=== PATIENT | female | born 1970 | race Caucasian/White ===

== ENCOUNTER 2020-03-02 11:25 | Emergency (ER) | payer OTHER, BC ==
[~2020-03-02] VITALS: Ht 154.9 cm; Wt 117.9 kg
--- OUTSIDE RECORDS SUMMARY | ~2020-03-02 | XMS | Clinical Summary ---
Demographics + + + | Address | [address] | | | [place] [address] | + + + | Home Phone | | + + + | Preferred Language | Unknown | + + + | Marital Status | | + + + | Mandaen Affiliation | Unknown | + + + | Race | Unknown | + + + | Ethnic Group | Unknown | + + + Author + + + | Author | [facility] | | | and [place] | + + + | Organization | [facility] | | | and [place] | + + + | Address | Unknown | + + + | Phone | Unavailable | + + + Support + + +---------+ + | Name | Relationship | Address | Phone | + + +---------+ + | Velasquez [place] | ECON | Unknown | Unavailable | + + +---------+ + Care Team Providers + +------+ + | Care Wire Straightening Machine Operator Name | Role | Phone | + +------+ + | Kenzie Baker | PCP | | + +------+ + Allergies No Known Allergies Medications + + + +---------+------+------+-------+ | Medication | Sig | Dispensed | Refills | Star | End | Statu | | | | | | t | Date | s | | | | | | Date | | | + + + +---------+------+------+-------+ | IBUPROFEN PO | Take by mouth. | | 0 | 09/1 | | Activ | | | | | | 5/20 | | e | | | | | | 17 | | | + + + +---------+------+------+-------+ | dicyclomine | Take 20 mg by mouth | | 0 | 07/12 | | Activ | | (BENTYL) 20 MG | every 6 (six) hours. | | | 03/30 | | e | | tablet | | | | 17 | | | + + + +---------+------+------+-------+ Active Problems + + + | Problem | Noted Date | + + + | Diarrhea | 07/31/2017 | + + + + + | Overview: Added automatically from request for surgery [id number] | + + Family History + + +------+ + | Medical History | Relation | Name | Comments | + + +------+ + | Colon polyps | Father | | | + + +------+ + | Kidney disease | Father | | | + + +------+ + | Kidney disease | Paternal | | | | | Grandfath | | | | | er | | | + + +------+ + + +------+--------+ + | Relation | Name | Status | Comments | + +------+--------+ + | Father | | Alive | | + +------+--------+ + | Father | | | | + +------+--------+ + | Mother | | Other | | + +------+--------+ + | Paternal Grandfather | | | | + +------+--------+ + | Paternal Grandfather | | | | + +------+--------+ + Social History + +-------+ +--------+------+ | Tobacco Use | Types | Packs/Day | Years | Date | | | | | Used | | + +-------+ +--------+------+ | Former Smoker | | | | | + +-------+ +--------+------+ + + + | Sex Assigned at | Date Recorded | | | | + + + | Not on file | | + + + + + + + | Job Start Date | Occupation | Industry | + + + + | Not on file | Not on file | Not on file | + + + + + + + + | Travel History | Travel Start | Travel End | + + + + + + | No recent travel history available. | + + Last Filed Vital Signs + + + + + | Vital Sign | Reading | Time Taken | Comments | + + + + + | Blood Pressure | 107/63 | 09/05/2017 3:13 PM | | | | | PDT | | + + + + + | Pulse | 87 | 09/05/2017 3:13 PM | | | | | PDT | | + + + + + | Temperature | 36.2 C (97.1 F) | 09/05/2017 3:13 PM | | | | | PDT | | + + + + + | Respiratory Rate | 16 | 09/05/2017 3:13 PM | | | | | PDT | | + + + + + | Oxygen Saturation | - | - | | + + + + + | Inhaled Oxygen | - | - | | | Concentration | | | | + + + + + | Weight | 99 kg (218 lb 4.2 | 09/05/2017 3:13 PM | | | | oz) | PDT | | + + + + + | Height | 152.4 cm (5') | 09/05/2017 3:13 PM | | | | | PDT | | + + + + + | Body Mass Index | 42.63 | 09/05/2017 3:13 PM | | | | | PDT | | + + + + + Plan of Treatment + + + + + | Health Maintenance | Due Date | Last Done | Comments | + + + + + | Vaccine: | | | | | Dtap/Tdap/Td (1 - | 3 | | | | Tdap) | | | | + + + + + | Colorectal Cancer | | | | | Screening | 0 | | | | (Colonoscopy) | | | | + + + + + | Cervical Cancer | | | | | Screening (Pap) | 2 | | | + + + + + | Breast Cancer | | | | | Screening | 7 | | | + + + + + | Vaccine: Influenza | | | | | (Season Ended) | 0 | | | + + + + + Results Not on filefrom Last 3 Months"
--- OUTSIDE RECORDS SUMMARY | ~2020-03-02 | XMS | Encounter Summary ---
Demographics + + + | Address | [address] | | | [place] [address] | + + + | Home Phone | | + + + | Preferred Language | Unknown | + + + | Marital Status | | + + + | Amish Affiliation | Unknown | + + + | Race | Unknown | + + + | Ethnic Group | Unknown | + + + Author + + + | Author | [facility] | | | and [place] | + + + | Organization | [facility] | | | and [place] | + + + | Address | Unknown | + + + | Phone | Unavailable | + + + Support + + +---------+ + | Name | Relationship | Address | Phone | + + +---------+ + | Velasquez [place] | ECON | Unknown | Unavailable | + + +---------+ + Care Team Providers + +------+ + | Care Corporate Administrative Assistant Name | Role | Phone | + +------+ + PCP | Unavailable | + +------+ + Encounter Details +--------+ + + + + | Date | Type | Department | Care Team | Description | +--------+ + + + + | 09/05/ | Hospital | [facility] | Toshia Jane, | Diarrhea; Diarrhea, | | 2017 | Encounter | [facility] | MD [address] | unspecified type | | | | INTRA OP [address] | [address] [place], | | | | | [address]VD [place], [place] | [place] [address] | | | | | [address] | [phone] | | | | | [phone] | | | +--------+ + + + + Social History + +-------+ +--------+------+ | Tobacco Use | Types | Packs/Day | Years | Date | | | | | Used | | + +-------+ +--------+------+ | Never Assessed | | | | | + +-------+ [...] recent travel history available. | + + documented as of this encounter Last Filed Vital Signs + + + [...] | | + + + + + documented in this encounter Medications at Time of Discharge + + + +---------+ + + | Medication | Sig | Dispensed | Refills | Start | End Date | | | | | | Date | | + + + +---------+ + + | dicyclomine | Take 20 mg by mouth | | 0 | 07/26/20 | | | (BENTYL) 20 MG | every 6 (six) hours. | | | 17 | | | tablet | | | | | | + + + +---------+ + + | IBUPROFEN PO | Take by mouth. | | 0 | 07/26/20 | | | | | | | 17 | | + + + +---------+ + + | cholestyramine | Take 1 packet by | 60 each | 2 | 09/05/20 | | | (QUESTRAN) 4 g | mouth 3 (three) | | | 17 | 8 | | packet | times daily with | | | | | | | meals. | | | | | + + + +---------+ + + documented as of this encounter Plan of Treatment Not on filedocumented as of this encounter Procedures + +--------+ + + + | Procedure Name | Priori | Date/Time | Associated Diagnosis | Comments | | | ty | | | | + +--------+ + + + | TISSUE REQUEST FOR | Routin | 09/06/2017 | | Results for this | | PATHOLOGY (NON-ORD) | e | 12:00 AM | | procedure are in the | | | | PDT | | results section. | + +--------+ + + + documented in this encounter Results Tissue Request For Pathology (09/06/2017 12:00 AM PDT) + + | Specimen | + + | Soft tissue sample | | (specimen) | + + + + + | Narrative | Performed At | + + + | SPECIMEN(S): A RANDOM Rt. Bx. SPECIMEN(S): B RANDOM Lt. Bx. | EXTERNAL LAB | | SPECIMEN SOURCE: A. RANDOM Rt. Bx. B. RANDOM Lt. Bx. CLINICAL | | | HISTORY: 09/05/2017 at 1441 H. No clinical history given. | | | MICROSCOPIC DESCRIPTION: A-B. Histologic sections of all submitted | | | blocks are examined by light microscopy. These findings, together with | | | the gross examination, support the pathologic diagnosis. FINAL | | | PATHOLOGIC DIAGNOSIS: A. Random right colon, biopsies: - | | | Unremarkable colonic mucosa, negative for active colitis, granulomas | | | or dysplasia. B. Random left colon, biopsies: - Unremarkable | | | colonic mucosa, negative for active colitis, granulomas or dysplasia. | | | AMB:rrc:C2NR GROSS DESCRIPTION: Two specimens are received in | | | two containers, labeled with the patient's name: A. Received in | | | formalin designated "random right biopsy ", consists of 2 yellow-shahid | | | soft tissue fragments that measure 0.4 and 0.5 cm in greatest | | | dimension. The specimen is entirely submitted in cassette A1. B. | | | Received in formalin designated "random left biopsy ", consists of 2 | | | yellow-shahid soft tissue fragments that measure 0.4 and 0.4 cm in | | | greatest dimension. The specimen is entirely submitted in cassette | | | B1. FM The gross description section of this report has been | | | prepared using a voice recognition system. The report was reviewed for | | | accuracy, however, sound-alike word errors, addition and/or deletions | | | may occur. If there is any question about this report please contact | | | the originating pathologist. PERFORMING LABORATORY: Professional | | | interpretation and technical preparation was performed by [employer] | | | Diagnostics, [facility], [address] [place], | | | [place] [address] (Evp General Counsel: Delon Elizondo M.D.; IA#: | | | [id number]). Diagnostician: Jailene Johns MD Pathologist | | | Electronically Signed 09/09/2017 | | + + + + +---------+ + + | Performing | Address | City/State/Zipcode | Phone Number | | Organization | | | | + +---------+ + + | EXTERNAL LAB | | | | + +---------+ + + documented in this encounter Visit Diagnoses + + | Diagnosis | + + | Diarrhea, unspecified type | + + documented in this encounter
--- OUTSIDE RECORDS SUMMARY | ~2020-03-02 | XMS | Encounter Summary ---
Demographics + + + | Address | [address] | | | [place] [address] | + + + | Home Phone | | + + + | Preferred Language | Unknown | + + + | Marital Status | | + + + | Hinduism Affiliation | Unknown | + + + | Race | Unknown | + + + | Ethnic Group | Unknown | + + + Author + + + | Author | [facility] | | | and [place] | + + + | Organization | [facility] | | | and [place] | + + + | Address | Unknown | + + + | Phone | Unavailable | + + + Support + + +---------+ + | Name | Relationship | Address | Phone | + + +---------+ + | Velasquez [place] | ECON | Unknown | Unavailable | + + +---------+ + Care Team Providers + +------+ + | Care Greenhouse Assistant Name | Role | Phone | + +------+ + | Kenzie Baker | PCP | | + +------+ + Encounter Details +--------+ + + + + | Date | Type | Department | Care Team | Description | +--------+ + + + + | 09/05/ | Orders Only | [facility] | Toshia Jane, | | | 2017 | | GASTROENTEROLOGY | [address] | | | | | [address] | [facility] [address], | | | | | [place], [place] | [place] [address] | | | | | [address] | [phone] | | | | | [phone] | | | +--------+ + + + [...] Not on filedocumented as of this encounter Visit Diagnoses Not on filedocumented in this encounter"
--- OUTSIDE RECORDS SUMMARY | ~2020-03-02 | XMS | Encounter Summary ---
Demographics + + + | Address | [address] | | | [place] [address] | + + + | Home Phone | | + + + | Preferred Language | Unknown | + + + | Marital Status | | + + + | Yarsani Affiliation | Unknown | + + + | Race | Unknown | + + + | Ethnic Group | Unknown | + + + Author + + + | Author | [facility] | | | and [place] | + + + | Organization | [facility] | | | and [place] | + + + | Address | Unknown | + + + | Phone | Unavailable | + + + Support + + +---------+ + | Name | Relationship | Address | Phone | + + +---------+ + | Velasquez [place] | ECON | Unknown | Unavailable | + + +---------+ + Care Team Providers + +------+ + | Care Video Game Animator Name | Role | Phone | + +------+ + | Kenzie Baker | PCP | | + +------+ + Encounter Details +--------+ + + + + | Date | Type | Department | Care Team | Description | +--------+ + + + + | 07/26/ | Orders Only | [facility] | Conversion | | | 2017 | | CONVERSION [address]P [address] | Transaction, | | | | | [address] | Provider Unknown | | | | | [place] | | | | | | [address] | (Fax) | | | | | [phone] | | | +--------+ + + + [...]
--- OUTSIDE RECORDS SUMMARY | ~2020-03-02 | XMS | Clinical Summary ---
Demographics + + + | Address | [address] | | | [place] [address] | + + + | Home Phone | | + + + | Preferred Language | Unknown | + + + | Marital Status | | + + + | Cheondoism Affiliation | Unknown | + + + | Race | Unknown | + + + | Ethnic Group | Unknown | + + + Author + + + | Author | [facility] | | | and [place] | + + + | Organization | [facility] | | | and [place] | + + + | Address | Unknown | + + + | Phone | Unavailable | + + + Support + + +---------+ + | Name | Relationship | Address | Phone | + + +---------+ + | Velasquez [place] | ECON | Unknown | Unavailable | + + +---------+ + Care Team Providers + +------+ + | Care Electromedical Equipment Repairer Name | Role | Phone | + [...] Overview: Added automatically from request for surgery [id number] | + + Family History + + [...]
--- OUTSIDE RECORDS SUMMARY | ~2020-03-02 | XMS | Encounter Summary ---
Demographics + + + | Address | [address] | | | [place] [address] | + + + | Home Phone | | + + + | Preferred Language | Unknown | + + + | Marital Status | | + + + | Gnosticism Affiliation | Unknown | + + + | Race | Unknown | + + + | Ethnic Group | Unknown | + + + Author + + + | Author | [facility] | | | and [place] | + + + | Organization | [facility] | | | and [place] | + + + | Address | Unknown | + + + | Phone | Unavailable | + + + Support + + +---------+ + | Name | Relationship | Address | Phone | + + +---------+ + | Velasquez [place] | ECON | Unknown | Unavailable | + + +---------+ + Care Team Providers + +------+ + | Care Installation Superintendent Name | Role | Phone | + +------+ + PCP | Unavailable | + +------+ + Encounter Details +--------+ + + + + | Date | Type | Department | Care Team | Description | +--------+ + + + + | 09/05/ | Hospital | [facility] | Toshia Jane, | Diarrhea; Diarrhea, | | 2017 | Encounter | [facility] | MD [address] | unspecified type | | | | INTRA OP [address] | [address] [place], | | | | | [address]VD [place], [place] | [place] [address] | | | | | [address] | [phone] | | | | | [phone] | | | +--------+ + + + [...] interpretation and technical preparation was performed by [employer] | | | Diagnostics, [facility], [address] [place], | | | [place] [address] (Planning Advisor: Delon Elizondo M.D.; IA#: | | | [id number]). Diagnostician: Jailene Johns MD Pathologist | | [...]
--- OUTSIDE RECORDS SUMMARY | ~2020-03-02 | XMS | Encounter Summary ---
Demographics + + + | Address | [address] | | | [place] [address] | + + + | Home Phone | | + + + | Preferred Language | Unknown | + + + | Marital Status | | + + + | Sabianist Affiliation | Unknown | + + + | Race | Unknown | + + + | Ethnic Group | Unknown | + + + Author + + + | Author | [facility] | | | and [place] | + + + | Organization | [facility] | | | and [place] | + + + | Address | Unknown | + + + | Phone | Unavailable | + + + Support + + +---------+ + | Name | Relationship | Address | Phone | + + +---------+ + | Velasquez [place] | ECON | Unknown | Unavailable | + + +---------+ + Care Team Providers + +------+ + | Care Wide Load Escort Name | Role | Phone | + +------+ + | Kenzie Baker | PCP | | + +------+ + Encounter Details +--------+ + + + + | Date | Type | Department | Care Team | Description | +--------+ + + + + | 09/05/ | Orders Only | [facility] | Toshia Jane, | | | 2017 | | GASTROENTEROLOGY | [address] | | | | | [address] | [facility] [address] [place], | | | | | [place], [place] | [place] [address] | | | | | [address] | [phone] | | | | | [phone] | | | +--------+ + + + [...]
--- OUTSIDE RECORDS SUMMARY | ~2020-03-02 | XMS | Clinical Summary ---
Demographics + + + | Address | [address] | | | [place] [address] | + + + | Home Phone | | + + + | Preferred Language | Unknown | + + + | Marital Status | | + + + | Sabianist Affiliation | Unknown | + + + | Race | Unknown | + + + | Ethnic Group | Unknown | + + + Author + + + | Author | [facility] (Historical as of | | | 06-27-19) | + + + | Organization | [facility] (Historical as of | | | 06-27-19) | + + + | Address | Unknown | + + + | Phone | Unavailable | + + + Support + + +---------+ + | Name | Relationship | Address | Phone | + + +---------+ + | Velasquez [place] | ECON | Unknown | | + + +---------+ + Care Team Providers + +------+ + | Care Aircraft Skin Burnisher Name | Role | Phone | + +------+ + | Kenzie Baker | PP | Unavailable | + +------+ + Allergies No Known Allergies Current Medications + + + +---------+------+------+-------+ | Prescription | Sig. | Disp. | Refills | Star | End | Statu | | | | | | t | Date | s | | | | | | Date | | | + + + +---------+------+------+-------+ | dicyclomine | Take 20 mg by mouth | | | | | Activ | | (BENTYL) 20 MG | every 6 (six) hours. | | | | | e | | tablet | | | | | | | + + + +---------+------+------+-------+ | IBUPROFEN PO | Take by mouth. | | | | | Activ | | | | | | | | e | + + + +---------+------+------+-------+ | cholestyramine | Take 1 packet by | 60 each | 2 | 10/2 | | Activ | | (QUESTRAN) 4 g | mouth 3 (three) | | | 04/30 | | e | | packet | times daily with | | | 17 | | | | | meals. | | | | | | + + + +---------+------+------+-------+ Active Problems + + + | Problem | Noted Date | + + + | Diarrhea | 07/31/2017 | + + + + + | Overview: Added automatically from request for surgery [id number] | + + Family History + + [...] Alive | | + +------+--------+ + | Mother | | Other | | + +------+--------+ + | Paternal Grandfather | | | | + +------+--------+ + Social History + +-------+ +--------+ + | Tobacco Use | Types | Packs/Day | Years | Date | | | | | Used | | + +-------+ +--------+ + | Former Smoker | | | | Quit: 2010 | + +-------+ +--------+ + + +---+---+---+ | Smokeless Tobacco: | | | | | Never Used | | | | + +---+---+---+ + + +---------+ + | Alcohol Use | Drinks/We | oz/Week | Comments | | | ek | | | + + +---------+ + | No | | | | + + +---------+ + + + + | Sex Assigned at | Date Recorded | | | | + + + | Not on file | | + + + Last Filed Vital Signs + + + + | Vital Sign | Reading | Time Taken | + + + + | Blood Pressure | 107/63 | 09/05/2017 3:12 PM PDT | + + + + | Pulse | 87 | 09/05/2017 3:12 PM PDT | + + + + | Temperature | 36.2 C (97.1 F) | 09/05/2017 3:12 PM PDT | + + + + | Respiratory Rate | 16 | 09/05/2017 3:12 PM PDT | + + + + | Oxygen Saturation | 99% | 09/05/2017 3:12 PM PDT | + + + + | Inhaled Oxygen | - | - | | Concentration | | | + + + + | Weight | 99 kg (218 lb 4.1 | 09/05/2017 1:03 PM PDT | | | oz) | | + + + + | Height | 152.4 cm (5') | 09/05/2017 1:03 PM PDT | + + + + | Body Mass Index | 42.63 | 09/05/2017 1:03 PM PDT | + + + + Plan of Treatment + + + + + | Health Maintenance | Due Date | Last Done | Comments | + + + + + | Vaccine: | | | | | Dtap/Tdap/Td (1 - | 1 | | | | Tdap) | | | | + + + + + | Cervical Cancer | | | | | Screening (Pap) | 2 | | | + + + + + | Vaccine: Influenza | | | | | (Season Ended) | 0 | | | + + + + + | Colon Cancer | | 09/05/2017 | | | Screening | 2 | | | | (Colonoscopy) | | | | + + + + + Results Not on filefrom Last 3 Months Insurance + +--------+ +------+-------+ + | Payer | Benefi | Subscriber | Type | Phone | Address | | | t Plan | ID | | | | | | / | | | | | | | Group | | | | | + +--------+ +------+-------+ + | PREMERA | PREMER | [id number] | | | [address] [address] | | | A BLUE | [address] | | | [place] | | | CARD | | | | [phone] | + +--------+ +------+-------+ + | MEDICAID | MEDICA | [id number] | | | [address] | | | ID | | | | [place] | | | [place] | | | | [address] | + +--------+ +------+-------+ + + +--------+ +--------+ + + | Guarantor Name | Accoun | Relation to | Date | Phone | Billing Address | | | t Type | Patient | of | | | | | | | | | | + +--------+ +--------+ + + | ARNULFO GAMBOA | Person | Self [birth year] | Home: | [address] | | | al/Fam | | 1970 | [phone] | [place] [address] | | | jomar | | | [phone] | | + +--------+ +--------+ + +"
--- OUTSIDE RECORDS SUMMARY | ~2020-03-02 | XMS | Clinical Summary ---
Demographics + + + | Address | [address] | | | [place] [address] | + + + | Home Phone | | + + + | Preferred Language | Unknown | + + + | Marital Status | | + + + | Episcopalian Affiliation | Unknown | + + + | Race | Unknown | + + + | Ethnic Group | Unknown | + + + Author + + + | Author | [facility] (Historical as of | | | 06-27-19) | + + + | Organization | [facility] (Historical as of | | | 06-27-19) [...] Team Providers + +------+ + | Care Recreational Therapist Name | Role | Phone | + [...] Overview: Added automatically from request for surgery [id number] | + + Family History + + [...] +------+-------+ + | PREMERA | PREMER | [id number] | | | [address] [address] | | | A BLUE | [address] | | | [place] | | | CARD | | | | [phone] | + +--------+ +------+-------+ + | MEDICAID | MEDICA | [id number] | | | [address] | | | ID | | | | [place] | | | [place] | | | | [phone] | + +--------+ +------+-------+ + + +--------+ +--------+ + + | Guarantor Name | Accoun | Relation to | Date | Phone | Billing Address | | | t Type | Patient | of | | | | | | | | | | + +--------+ +--------+ + + | ARNULFO GAMBOA | Person | Self [birth year] | Home: | [address] | | | al/Fam | | 1970 | [phone] | [place] [address] | | | jomar | | | [phone] | | + +--------+ +--------+ + +"
--- OUTSIDE RECORDS SUMMARY | ~2020-03-02 | XMS | Encounter Summary ---
Demographics + + + | Address | [address] | | | [place] [address] | + + + | Home Phone | | + + + | Preferred Language | Unknown | + + + | Marital Status | | + + + | Jain Affiliation | Unknown | + + + | Race | Unknown | + + + | Ethnic Group | Unknown | + + + Author + + + | Author | [facility] | | | and [place] | + + + | Organization | [facility] | | | and [place] | + + + | Address | Unknown | + + + | Phone | Unavailable | + + + Support + + +---------+ + | Name | Relationship | Address | Phone | + + +---------+ + | Velasquez [place] | ECON | Unknown | Unavailable | + + +---------+ + Care Team Providers + +------+ + | Care Registered Dietician Name | Role | Phone | + [...] [place] | | | | | | [phone] | (Fax) | | | | | [phone] | | | +--------+ + + + [...]
[2020-03-02] MEDS ORDERED: LEVOTHYROXINE100 MCG PO (11:40)
[2020-03-02] MEDS ORDERED: ALBUTEROL2.5 MG/3 M INH (11:41)
[2020-03-02] MEDS ORDERED: LEVOFLOXACIN750 MG PO (11:41)
--- NOTE | 2020-03-02 22:02 | EKG ---
[facility] [address] [facility] [place] [address] Signed Normal sinus rhythm Normal ECG No previous ECGs available Confirmed by GENA TENA MD ([id number]) on 03/02/2020 10:02:21 PM Electronically Signed By: GENA TENA MD 03/02/202201 PATIENT NAME: ARNULFO GAMBOA Electrocardiogram DATE OF : 74 PHYSICIAN: GENA TENA MD REPORT #: [id number] REPORT IS CONFIDENTIAL AND NOT TO BE RELEASED WITHOUT AUTHORIZATION
== END 2020-03-02 15:35 | disposition home or self-care (01) ==
LOC: ED 11:25
DX: R07.9 Chest pain, unspecified (principal); Z79.899 Other long term (current) drug therapy; Z79.51 Long term (current) use of inhaled steroids
CPT/HCPCS: 71045; 80053; 83880; 84484; 85025; 93005; 93010; 99285-25

== ENCOUNTER 2021-07-06 07:25 | Day surgery (SDC) | payer BC ==
[~2021-07-06] VITALS: Ht 154.9 cm; Wt 99.0 kg
[~2021-07-06 07:25] MED LIST: ALBUTEROL2.5 MG/3 M INH; LEVOFLOXACIN750 MG PO; LEVOTHYROXINE100 MCG PO
--- NOTE | 2021-07-06 11:01 | NUR ---
07/06/21 1101 [address] 1057 PATIENT ARRIVES TO PACU SLEEPING, AWAKENS WITH VERBAL STIMULI. RESP EVEN AND UNLABORED, ROOM AIR SATS >95%. PATIENT DENIES PAIN OR NAUSEA, THEN BACK TO SLEEP.
--- NOTE | 2021-07-13 15:47 | PATH ---
[facility] [address] [facility], [place] [address] Signed SPECIMEN(S): A [facility] SPECIMEN SOURCE: A. [facility] CLINICAL HISTORY: Hysteroscopy DC. Abnormal uterine bleeding. FINAL PATHOLOGIC DIAGNOSIS: Endometrium, curettage: - Fragments of benign polyp with extensive endocervical type mucinous metaplasia. - Fragments of smooth muscle with features of leiomyoma. - Squamous mucosa with no histopathologic abnormality. - Negative for atypia or malignancy. - See comment. COMMENT: A portion of the clinical history and operative note was reviewed. There are no endometrial elements present for evaluation. The fragments of polypoid tissue are favored to represent fragments of an endometrial polyp with extensive mucinous metaplasia; areas of tubal metaplasia are also seen. No epithelial or stromal atypia or malignancy is seen. As part of [employer] Quality Improvement Program, this case was reviewed by another member of our pathology staff. NAL:cml:C2NR MICROSCOPIC EXAMINATION: Histologic sections of all submitted blocks are examined by light microscopy. These findings, together with the gross examination, support the pathologic diagnosis. GROSS DESCRIPTION: The specimen, labeled "MAYA CAM," is received in formalin and consists of multiple shahid soft tissue fragments with mucus and clot material measuring 3.0 x 2.2 x 0.6 cm in aggregate. Specimen is filtered and entirely submitted in cassette (A1). AT (under the direct supervision of a pathologist) The Gross Description was prepared using a voice recognition system. The report was reviewed for accuracy; however, sound-alike word errors, addition and/or deletions may occur. If there is any PATIENT NAME: ARNULFO GAMBOA PATHOLOGY DATE OF : 74 REPORT #: [id number] PHYSICIAN: SUZANNE LOVE PCP: MADHU VILLARREAL REPORT IS CONFIDENTIAL AND NOT TO BE RELEASED WITHOUT AUTHORIZATION [facility] [address] [place], [place] [address] Signed question about this report, please contact Client Services. PERFORMING LABORATORY: The technical component [place] [address] (Diet Attendant: Jailene Johns MD; CLIA# [id number]). Professional interpretation was performed by [facility] [address] [address] (CLIA# [id number]). Diagnostician: Bonnie Lam MD Pathologist Electronically Signed 07/13/2021 Copies: ~ PATIENT NAME: ARNULFO GAMBOA PATHOLOGY DATE OF : 74 REPORT #: [id number] PHYSICIAN: SUZANNE LOVE PCP: MADHU VILLARREAL REPORT IS CONFIDENTIAL AND NOT TO BE RELEASED WITHOUT AUTHORIZATION
--- NOTE | 2021-07-16 22:16 | OR ---
[facility] [address] [place], [place] [address] Signed DATE OF OPERATION: 07/06/2021 SURGEON: Jeff Heredia DO PROCEDURE: Hysteroscopy, D and C. PREOPERATIVE DIAGNOSES: Abnormal uterine bleeding, Bartholin cyst, uterine fibroid. POSTOPERATIVE DIAGNOSIS: Abnormal uterine bleeding, Bartholin cyst, uterine fibroid. COMPLICATIONS: None. BLOOD LOSS: 5 mL. FINDINGS: Left Bartholin's cyst resolving with Word catheter in place with tail tucked into vagina, normal-appearing cervix with mild descensus, cervical canal easily dilated, endometrial cavity obscured by posterior fibroid with overlying apparent polypoid tissue extending from region of the right tubal ostia, which was not fully visualized. Left tubal ostia was visualized without difficulty. DESCRIPTION OF PROCEDURE: The patient was taken back to the OR where she was placed under monitored anesthesia care and positioned in dorsal lithotomy. Bartholin cyst was examined, noted to be healing well with Word catheter. Decision was made not to perform marsupialization at this time. She was prepped and draped in normal sterile fashion. Weighted speculum was placed, the anterior lip of the cervix was grasped with an Allis clamp and cervix was easily sequentially dilated with Hegar dilators. Hysteroscope was then inserted and endometrial cavity was surveyed with findings as noted above. MyoSure Reach device was introduced and circumferential curettage of the cavity was initiated. Due to technical difficulties and malfunctioning foot pedal MyoSure device scope and device were removed and sharp curettage was performed. Troubleshooting of the device and foot pedal successfully resolved the problem. The scope and device were Electronically Signed By: JEFF HEREDIA DO 07/16/21 2216 PATIENT NAME: ARNULFO GAMBOA OPERATIVE REPORT DATE OF : 74 REPORT #: [id number] PHYSICIAN: JEFF HEREDIA DO PCP: MADHU VILLARREAL REPORT IS CONFIDENTIAL AND NOT TO BE RELEASED WITHOUT AUTHORIZATION [facility] [address] [place] [address] Signed reintroduced and circumferential curettage was completed with MyoSure Reach device without further incident. Fluid deficit was 380 mL. All instrumentation was removed. The patient was taken to the recovery room in stable and satisfactory condition. Jeff Heredia DO EMZ/MODL /[id number] Copies: ~ Electronically Signed By: JEFF HEREDIA DO 07/16/21 2216 PATIENT NAME: COOPER,ARNULFO OLGA OPERATIVE REPORT DATE OF : 74 REPORT #: [id number] PHYSICIAN: JEFF HEREDIA DO PCP: MADHU VILLARREAL REPORT IS CONFIDENTIAL AND NOT TO BE RELEASED WITHOUT AUTHORIZATION
== END 2021-07-06 12:00 | disposition home or self-care (01) ==
LOC: OPS 07:25 → DS 07:25 → OPS 08:45
PROVIDERS: ATTEND Obstetrics & Gynecology
PROC: 0UDB8ZX Extraction of Endometrium, Via Natural or Artificial Opening Endoscopic, Diagnostic (ICD-10-PCS; principal; 2021-07-06 08:45)
DX: D25.9 Leiomyoma of uterus, unspecified (principal); N84.0 Polyp of corpus uteri; N87.9 Dysplasia of cervix uteri, unspecified; N75.0 Cyst of Bartholin's gland; Z87.891 Personal history of nicotine dependence
CPT/HCPCS: 00952; J1644; J1885; J2001; J2250; J2405; J2704; J7121

== ENCOUNTER 2022-02-08 08:28 | Day surgery (SDC) | payer BC ==
[~2022-02-08] VITALS: Ht 154.9 cm; Wt 96.4 kg
--- NOTE | 2022-02-08 11:33 | NUR ---
02/08/22 1133 [address] 1128-PATIENT ARRIVED TO PACU ON RA RR EVEN. REACTIVE TO VERBAL STIMULI REMAINS DROWSY DENIES PAIN OR NAUSEA. SR. IVF INFUSING. KANWAL PAD CDI. PATIENT DOZES BACK TO SLEEP. 1133-GLUCOSE LEVEL OF 83
[2022-02-08] MEDS ORDERED: IBUPROFEN200 M1 PO (12:08)
--- NOTE | 2022-02-12 14:58 | PATH ---
[facility] [address] [place], [place] [address] Signed SPECIMEN(S): A ENDOMETRIAL CURETTINGS SPECIMEN SOURCE: A. ENDOMETRIAL CURETTINGS CLINICAL HISTORY: Abnormal uterine bleeding FINAL PATHOLOGIC DIAGNOSIS: Endometrium, curettage: - Weakly proliferative endometrium. - Fragments of myometrium with no histopathologic abnormality. - Negative for hyperplasia or malignancy. NAL:cml:C2NR MICROSCOPIC EXAMINATION: Histologic sections of all submitted blocks are examined by light microscopy. These findings, together with the gross examination, support the pathologic diagnosis. GROSS DESCRIPTION: The specimen, labeled "Angelica, endometrial curettings as per the requisition," is received in formalin and consists of an aggregate of white rubbery soft tissue admixed with hemorrhage (2.1 x 1.6 x 0.7 cm). The specimen is submitted entirely in A1. KD (under the direct supervision of a pathologist) The Gross Description was prepared using a voice recognition system. The report was reviewed for accuracy; however, sound-alike word errors, addition and/or deletions may occur. If there is any question about this report, please contact Client Services. PERFORMING LABORATORY: The technical component was performed by [employer], [address] [place] [id number] (Gamma Operator: Jailene Johns MD; CLIA# [id number]). [facility] [address] [address] (CLIA# [id number]). Diagnostician: Bonnie Lam MD Pathologist Electronically Signed 02/12/2022 PATIENT NAME: ARNULFO GAMBOA PATHOLOGY DATE OF : 74 REPORT #: [id number] PHYSICIAN: SUZANNE PATHOLOGY PCP: MADHU VILLARREAL REPORT IS CONFIDENTIAL AND NOT TO BE RELEASED WITHOUT AUTHORIZATION [address] [place], [place] [address] Signed Copies: ~ PATIENT NAME: ARNULFO GAMBOA PATHOLOGY DATE OF : 74 REPORT #: [id number] PHYSICIAN: SUZANNE PATHOLOGY PCP: MADHU VILLARREAL REPORT IS CONFIDENTIAL AND NOT TO BE RELEASED WITHOUT AUTHORIZATION
--- NOTE | 2022-02-12 19:47 | OR ---
[facility] [address] [facility] [place], [place] [address] Signed DATE OF OPERATION: 02/08/2022 SURGEON: Jeff Heredia DO PROCEDURES: Hysteroscopy and dilation and curettage. PREOPERATIVE DIAGNOSIS: Abnormal uterine bleeding, equivocal pathology on previous sampling. POSTOPERATIVE DIAGNOSIS: Abnormal uterine bleeding, equivocal pathology on previous sampling. ANESTHESIA: Monitored anesthesia care. BLOOD LOSS: 5 mL. SPECIMEN: Endometrial currettings COMPLICATIONS: None. FINDINGS: A minimally enlarged midline uterus. Cervical descensus to 1 cm above the hymenal ring. Bilateral tubal ostia visualized and noted to be large. Endometrium appears normal, without polyps or thickening INDICATIONS FOR THE PROCEDURE: The patient is a 51-year-old female with history of abnormal uterine bleeding, previous workup was significant for endocervical cells without background endometrial cells to confirm absence of hyperplasia or atypia per pathology, recommended follow up with repeat sampling in six months. Risks, benefits, and alternatives to repeat hysteroscopy, D and C at six month interval were discussed with the patient including opportunity to perform in the office under local anesthetic and she verbalized strong preference for completing the procedure in the operating room and elected to proceed. Electronically Signed By: JEFF HEREDIA DO 02/12/22 1947 PATIENT NAME: ARNULFO GAMBOA OPERATIVE REPORT DATE OF : 74 REPORT #: [id number] PHYSICIAN: JEFF HEREDIA DO PCP: MADHU VILLARREAL REPORT IS CONFIDENTIAL AND NOT TO BE RELEASED WITHOUT AUTHORIZATION [facility] [address] [facility] [place] [address] Signed DESCRIPTION OF PROCEDURE: The patient was taken to the operating room, where she was placed under monitored anesthesia care, positioned in dorsal lithotomy, prepped and draped in normal sterile fashion. Weighted speculum was placed in the vagina and anterior lip of the cervix was grasped with an Allis clamp. Cervix was easily sequentially dilated with Hegar dilators to accommodate 6 mm hysteroscope, which was then advanced through the cervix into the uterus. Aqualux fluid management system was used with normal saline ans a distension media. Bilateral tubal ostia were visualized. Of note, both appeared quite large, particularly on the left. Endometrium was circumferentially curetted using the MyoSure Lite device. All instrumentation was removed. Fluid deficit was noted to be 700 mL. Blood loss was noted to be 5 mL. All sponge and instrument counts were correct. The patient was taken to Recovery in stable and satisfactory condition. Jeff Heredia DO EMZ/MODL /[id number] Copies: ~ Electronically Signed By: JEFF HEREDIA DO 02/12/22 1947 PATIENT NAME: ARNULFO GAMBOA OPERATIVE REPORT DATE OF : 74 REPORT #: [id number] PHYSICIAN: JEFF HEREDIA DO PCP: MADHU VILLARREAL REPORT IS CONFIDENTIAL AND NOT TO BE RELEASED WITHOUT AUTHORIZATION
== END 2022-02-08 12:15 | disposition home or self-care (01) ==
LOC: OPS 08:28 → DS 08:28 → OPS 08:45
PROVIDERS: ATTEND Obstetrics & Gynecology
PROC: 0UDB8ZZ Extraction of Endometrium, Via Natural or Artificial Opening Endoscopic (ICD-10-PCS; principal; 2022-02-08 10:00)
DX: N93.9 Abnormal uterine and vaginal bleeding, unspecified (principal); Z87.891 Personal history of nicotine dependence
CPT/HCPCS: 00952; J1100; J1644; J1885; J2001; J2250; J2405; J2704; J7121

== ENCOUNTER 2024-04-24 08:54 | Emergency (ER) | payer BC ==
[~2024-04-24] VITALS: Ht 154.9 cm; Wt 74.8 kg
[~2024-04-24 08:54] MED LIST changes: +IBUPROFEN200 M1 PO
--- OUTSIDE RECORDS SUMMARY | 2024-04-24 08:55 | XMS ---
PreManage Notification: DOREEN GAMBOA Security Charger Events No recent Security Events currently on file CRITERIA MET - [facility] CARE PROVIDERS AGGIE RAGLAND Surgery Current PHONE: [phone] MADHU VILLARREAL Current PHONE: Unknown KAYLAN LONG Physician Java Web Services Developer: Medical Current KERRIE PHONE: [phone] Patrick has no Care Guidelines for this patient. E.D. VISIT COUNT (12 MO.) 1 JON Sinclair TOTAL 1 NOTE: Visits indicate total known visits. ED/UCC VISIT TRACKING (12 MO.) 04/24/2024 08:54 JON Cullen OR TYPE: Emergency COMPLAINT: - EAR INJURY INPATIENT VISIT TRACKING (12 MO.) No inpatient visits to display in this time frame [email or web address]
[2024-04-24] MEDS ORDERED: FLUOXETINE HCL60 MG PO (09:13)
[2024-04-24] MEDS ORDERED: CAPLYTA42 MG PO (09:13)
[2024-04-24] MEDS ORDERED: GABAPENTIN100 MG PO (09:14)
[2024-04-24] MEDS ORDERED: CLONAZEPAM1 MG PO (09:14)
[2024-04-24] MEDS ORDERED: CEPHALEXIN500 M1 PO (09:58)
[2024-04-24] MEDS ORDERED: CEPHALEXIN MONOHYDRATE 500 MG CAP PO ONE (10:00)
[2024-04-24] MEDS ORDERED: BACITRACIN 0.9 GM 1 PKT PKT TOP ONE (10:00)
[2024-04-24 10:17] VITALS: BP 122/86
== END 2024-04-24 10:19 | disposition home or self-care (01) ==
LOC: ED 08:54
DX: S01.302A Unspecified open wound of left ear, initial encounter (principal); L08.9 Local infection of the skin and subcutaneous tissue, unspecified; X58.XXXA Exposure to other specified factors, initial encounter; R73.03 Prediabetes; F31.9 Bipolar disorder, unspecified; Z79.899 Other long term (current) drug therapy
CPT/HCPCS: 99282; A9270